=== PATIENT | female | born 1985 | race Caucasian/White ===

== ENCOUNTER 2016-12-26 11:10 | Emergency (ER) | payer OTHER ==
[~2016-12-26] VITALS: Ht 160 cm; Wt 70.9 kg
[2016-12-26 11:15] VITALS: Ht 160 cm; Wt 70.9 kg
[2016-12-26] MEDS ORDERED: [UNRECOGNIZED DRUG - SUPPLY] EXT ONE (12:57)
[2016-12-26 13:01] VITALS: TEMP 37.4
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
[2016-12-26] MEDS ORDERED: ONDANSETRON 2MG ODT PO STA (15:22)
[2016-12-26] MEDS ORDERED: LEVONORGESTREL (EMERGENCY OC) 1.5 MG TAB PO ONE (15:30)
[2016-12-26] MEDS ORDERED: CEFTRIAXONE SOD INJ 250 MG in SYRINGE 0 ML IM SCH (15:30)
[2016-12-26] MEDS ORDERED: AZITHROMYCIN 250 MG TAB PO ONE (15:30)
[2016-12-26] MEDS ORDERED: CEFTRIAXONE SOD INJ 250 MG/ML VIAL IM ONE (15:30)
[2016-12-26 16:01] VITALS: BP 98/61; PULSE 62; O2SAT 95
== END 2016-12-26 16:01 | disposition home or self-care (01) ==
LOC: C.EDB 11:13 → C.EDC 16:01
DX: T76.21XA Adult sexual abuse, suspected, initial encounter (principal); X58.XXXA Exposure to other specified factors, initial encounter; Y92.039 Unspecified place in apartment as the place of occurrence of the external cause; F31.9 Bipolar disorder, unspecified; F43.10 Post-traumatic stress disorder, unspecified; F50.9 Eating disorder, unspecified